=== PATIENT | female | born 1965 | race Native Hawaiian/Other Pacific Islander ===

== ENCOUNTER 2019-06-27 13:38 | Emergency (ER) | payer OTHER ==
[~2019-06-27] VITALS: Ht 160 cm; Wt 52.2 kg
[2019-06-27 17:40] VITALS: BP 110/53; TEMP 98.5
== END 2019-06-27 17:45 | disposition home or self-care (01) ==
LOC: ED 13:38
DX: M54.5 Low back pain (principal); G89.29 Other chronic pain; M25.551 Pain in right hip; X50.1XXA Overexertion from prolonged static or awkward postures, initial encounter; Y92.009 Unspecified place in unspecified non-institutional (private) residence as the place of occurrence of the external cause
CPT/HCPCS: 96372; 99283; J1885; J2930

== ENCOUNTER 2019-07-23 11:29 | Emergency (ER) | payer OTHER ==
[~2019-07-23] VITALS: Ht 160 cm; Wt 72.6 kg
[2019-07-23 11:46] VITALS: BP 128/70; TEMP 98.1
== END 2019-07-23 13:30 | disposition home or self-care (01) ==
LOC: ED 11:29
DX: S90.562A Insect bite (nonvenomous), left ankle, initial encounter (principal); W57.XXXA Bitten or stung by nonvenomous insect and other nonvenomous arthropods, initial encounter
CPT/HCPCS: 99281

== ENCOUNTER 2019-08-06 20:03 | Emergency (ER) | payer OTHER ==
[~2019-08-06] VITALS: Ht 160 cm; Wt 72.6 kg
[2019-08-06 21:23] LABS: PLATELET COUNT 215 K/uL (152-353)
[2019-08-06 21:31] LABS: POTASSIUM 3.8 mmol/L (3.6-5.2); SODIUM 138 mmol/L (136-145)
[2019-08-07 00:02] VITALS: BP 115/61; TEMP 98.2
== END 2019-08-07 00:02 | disposition home or self-care (01) ==
LOC: ED 20:03
PROVIDERS: Family Medicine
DX: R07.89 Other chest pain (principal); M50.30 Other cervical disc degeneration, unspecified cervical region; M79.2 Neuralgia and neuritis, unspecified
CPT/HCPCS: 36415; 80053; 81000; 82550; 84484; 85027; 93005; 96374; 99283; 99284; J1885

== ENCOUNTER 2019-10-31 19:45 | Emergency (ER) | payer OTHER ==
[~2019-10-31] VITALS: Ht 160 cm; Wt 71.2 kg
[2019-10-31 21:00] VITALS: BP 105/53; TEMP 98.1
== END 2019-10-31 21:00 | disposition home or self-care (01) ==
LOC: ED 19:45
DX: J11.1 Influenza due to unidentified influenza virus with other respiratory manifestations (principal); R50.9 Fever, unspecified; J32.9 Chronic sinusitis, unspecified; F17.210 Nicotine dependence, cigarettes, uncomplicated
CPT/HCPCS: 87502; 87651; 96372; 99283; J0696; J1885

== ENCOUNTER 2019-11-08 12:12 | Emergency (ER) | payer OTHER ==
[~2019-11-08] VITALS: Ht 160 cm; Wt 51.7 kg
[2019-11-08 12:20] VITALS: BP 151/89; TEMP 97.9
== END 2019-11-08 14:31 | disposition home or self-care (01) ==
LOC: ED 12:12
DX: B34.9 Viral infection, unspecified (principal); J18.9 Pneumonia, unspecified organism; J02.9 Acute pharyngitis, unspecified; F17.210 Nicotine dependence, cigarettes, uncomplicated
CPT/HCPCS: 87502; 87651; 96372; 99283; J1885

== ENCOUNTER 2020-06-08 22:18 | Emergency (ER) | payer OTHER ==
[~2020-06-08] VITALS: Ht 160 cm; Wt 49.9 kg
[2020-06-08 23:30] VITALS: BP 118/62; TEMP 99
== END 2020-06-08 23:30 | disposition home or self-care (01) ==
LOC: ED 22:18
DX: M25.511 Pain in right shoulder (principal); M75.51 Bursitis of right shoulder
CPT/HCPCS: 96372; 99283; J1885; J2930

== ENCOUNTER 2020-10-08 13:44 | Emergency (ER) | payer OTHER ==
[~2020-10-08] VITALS: Ht 160 cm; Wt 52.2 kg
[2020-10-08 15:00] VITALS: BP 116/63; TEMP 98.7
== END 2020-10-08 15:00 | disposition home or self-care (01) ==
LOC: ED 13:44
DX: M16.0 Bilateral primary osteoarthritis of hip (principal); M19.042 Primary osteoarthritis, left hand; M19.041 Primary osteoarthritis, right hand; M19.09 Primary osteoarthritis, other specified site; M79.641 Pain in right hand
CPT/HCPCS: 96372; 99283; J1885; J2930

== ENCOUNTER 2020-12-10 20:48 | Emergency (ER) | payer OTHER ==
[~2020-12-10] VITALS: Ht 160 cm; Wt 51.7 kg
[2020-12-10 23:15] VITALS: BP 124/74; TEMP 98.5
== END 2020-12-10 23:15 | disposition home or self-care (01) ==
LOC: ED 20:48
DX: M19.032 Primary osteoarthritis, left wrist (principal)
CPT/HCPCS: 96372; 99283; J2930

== ENCOUNTER 2021-01-06 08:39 | Emergency (ER) | payer OTHER ==
[~2021-01-06] VITALS: Ht 160 cm; Wt 52.2 kg
[2021-01-06 08:55] VITALS: BP 127/74; TEMP 97.3
== END 2021-01-06 09:20 | disposition home or self-care (01) ==
LOC: ED 08:39
DX: M79.642 Pain in left hand (principal); M19.042 Primary osteoarthritis, left hand; M10.9 Gout, unspecified
CPT/HCPCS: 96372; 99283; J1885; J2930

== ENCOUNTER 2021-01-08 23:27 | Emergency (ER) | payer OTHER ==
[~2021-01-08] VITALS: Ht 160 cm; Wt 52.2 kg
[2021-01-09 00:50] LABS: POTASSIUM 3.9 mmol/L (3.6-5.2)
[2021-01-09 02:13] LABS: PLATELET COUNT 254 K/uL (152-353)
[2021-01-09 03:31] VITALS: BP 131/66; TEMP 98.3
== END 2021-01-09 03:30 | disposition home or self-care (01) ==
LOC: ED 23:27
PROVIDERS: Hospitalist
DX: L03.114 Cellulitis of left upper limb (principal); M19.032 Primary osteoarthritis, left wrist; M10.9 Gout, unspecified
CPT/HCPCS: 36415; 80048; 83605; 84550; 85027; 87040; 96365; 96375; 99284; J1100; J1170; J1885; J3370

== ENCOUNTER 2021-06-23 23:17 | Emergency (ER) | payer OTHER ==
[~2021-06-23] VITALS: Ht 160 cm; Wt 52.2 kg
[2021-06-24 04:11] LABS: PLATELET COUNT 164 K/uL (152-353)
[2021-06-24 04:24] LABS: POTASSIUM 3.9 mmol/L (3.6-5.2)
[2021-06-24 05:30] VITALS: BP 121/74; TEMP 98.3
== END 2021-06-24 05:30 | disposition home or self-care (01) ==
LOC: ED 23:17
PROVIDERS: Family Medicine
DX: R22.1 Localized swelling, mass and lump, neck (principal); J02.9 Acute pharyngitis, unspecified; F17.210 Nicotine dependence, cigarettes, uncomplicated
CPT/HCPCS: 80053; 84443; 85027; 86140; 87651; 99283

== ENCOUNTER 2021-10-02 15:22 | Outpatient (CLI) | payer OTHER | END 2021-10-02 19:06 | disposition home or self-care (01) | LOC: RAD 15:22 | PROVIDERS: ATTEND Internal Medicine | DX: M19.031 Primary osteoarthritis, right wrist (principal); M19.041 Primary osteoarthritis, right hand ==

== ENCOUNTER 2022-06-10 21:21 | Emergency (ER) | payer OTHER ==
[~2022-06-10] VITALS: Ht 160 cm; Wt 51.7 kg
[2022-06-10 22:24] VITALS: BP 179/97; TEMP 99.1
== END 2022-06-10 22:24 | disposition left against medical advice (07) ==
LOC: ED 21:21
DX: G89.4 Chronic pain syndrome (principal); F11.20 Opioid dependence, uncomplicated
CPT/HCPCS: 93005; 99283; J2001

== ENCOUNTER 2022-06-17 04:21 | Inpatient (IN) | payer OTHER ==
[~2022-06-17] VITALS: Ht 160 cm; Wt 50.4 kg
[2022-06-17] VITALS (7 sets, daily range): BP systolic 101–185; BP diastolic 60–101; TEMP 97.6–99; Ht 160 cm; Wt 50.4 kg
[2022-06-17 05:31] LABS: POTASSIUM 3.7 mmol/L (3.6-5.2)
[2022-06-17 05:35] LABS: PLATELET COUNT 369 K/uL (152-353)
[2022-06-17] MEDS ORDERED: Z-PAK PO (11:26)
[2022-06-17] MEDS ORDERED: MEDROL DOSEPAK4 MG PO (11:27)
[2022-06-17] MEDS ORDERED: PROAIR HFA108 MCG/AC INH (11:28)
[2022-06-17] MEDS ORDERED: DICL1GEL2 TOP (11:44)
[2022-06-17] MEDS ORDERED: CETI10TA PO (11:45)
[2022-06-18] VITALS: BP 120/56; TEMP 97.8
[2022-06-18 04:00] VITALS: BP 112/64; TEMP 97.8
[2022-06-18 08:09] VITALS: BP 122/70; TEMP 98.5
[2022-06-18 09:25] LABS: PLATELET COUNT 162 K/uL (152-353)
[2022-06-18 09:31] LABS: POTASSIUM 4.5 mmol/L (3.6-5.2)
[2022-06-18 12:00] VITALS: BP 118/67; TEMP 98.6
[2022-06-18 16:00] VITALS: BP 114/57; TEMP 99.1
[2022-06-18 20:00] VITALS: BP 128/45; TEMP 98.3
[2022-06-19] VITALS: BP 119/59; TEMP 98.4
[2022-06-19 02:18] LABS: PLATELET COUNT 365 K/uL (152-353)
[2022-06-19 02:21] LABS: POTASSIUM 3.9 mmol/L (3.6-5.2)
[2022-06-19 04:00] VITALS: BP 140/59; TEMP 98.4
[2022-06-19 08:00] VITALS: BP 144/79; TEMP 98.4
[2022-06-19 12:00] VITALS: BP 156/76; TEMP 98.3
[2022-06-19 16:00] VITALS: BP 143/787; TEMP 98.8
[2022-06-19 20:00] VITALS: BP 132/66; TEMP 99.9
[2022-06-20] VITALS: BP 123/55; TEMP 98.5
[2022-06-20 03:45] VITALS: BP 132/86; TEMP 98.3
[2022-06-20 08:00] VITALS: BP 130/67; TEMP 98.4
[2022-06-20 12:00] VITALS: BP 134/69; TEMP 98.2
== END 2022-06-20 13:03 | disposition short-term general hospital (02) | DRG 603 ==
LOC: ED 04:21 → MED/SURG 08:02
PROVIDERS: ADMIT Family Medicine; ATTEND Internal Medicine
DX: L02.414 Cutaneous abscess of left upper limb (principal); G89.29 Other chronic pain; F15.20 Other stimulant dependence, uncomplicated; R78.81 Bacteremia; B95.61 Methicillin susceptible Staphylococcus aureus infection as the cause of diseases classified elsewhere
CPT/HCPCS: 36415; 36416; 80053; 80202; 80307; 81002; 83735; 84100; 85027; 85652; 86140; 87040; 87070; 87077; 87185; 87186; 87205; 87635; 96360; 96361; 96365; 96367; 96374; 96376; 99284; J0132; J1170; J1885; J2543; J3370; U0003

== ENCOUNTER 2022-07-30 13:11 | Emergency (ER) | payer OTHER ==
[~2022-07-30] VITALS: Ht 160 cm; Wt 51.7 kg
[~2022-07-30 13:11] MED LIST: CETI10TA PO; DICL1GEL2 TOP; MEDROL DOSEPAK4 MG PO; PROAIR HFA108 MCG/AC INH; Z-PAK PO
[2022-07-30 13:20] VITALS: TEMP 96.7
[2022-07-30 14:36] VITALS: BP 98/66
== END 2022-07-30 14:39 | disposition home or self-care (01) ==
LOC: ED 13:11
DX: G89.4 Chronic pain syndrome (principal); R82.5 Elevated urine levels of drugs, medicaments and biological substances
CPT/HCPCS: 80307; 99282

== ENCOUNTER 2022-08-17 19:54 | Emergency (ER) | payer OTHER ==
[~2022-08-17] VITALS: Ht 160 cm; Wt 51.7 kg
[2022-08-17 20:00] VITALS: TEMP 97.6
[2022-08-17 23:15] VITALS: BP 113/72
== END 2022-08-17 23:15 | disposition home or self-care (01) ==
LOC: ED 19:54
DX: M54.2 Cervicalgia (principal); M54.89 Other dorsalgia; G89.29 Other chronic pain; M43.5X2 Other recurrent vertebral dislocation, cervical region
CPT/HCPCS: 80307; 96372; 99283; J1885; J2360

== ENCOUNTER 2022-09-13 22:03 | Inpatient (IN) | payer OTHER ==
[~2022-09-13] VITALS: Ht 160 cm; Wt 51.3 kg
[2022-09-13 22:03] VITALS: BP 140/68; TEMP 98.8
[2022-09-13 23:00] VITALS: BP 148/64
[2022-09-13 23:40] LABS: POTASSIUM 3.4 mmol/L (3.6-5.2)
[2022-09-14] VITALS (8 sets, daily range): BP systolic 107–154; BP diastolic 48–79; TEMP 98.1–98.5; Ht 160 cm; Wt 51.3 kg
[2022-09-14 00:52] LABS: PLATELET COUNT 591 K/uL (152-353)
[2022-09-14 10:12] LABS: PLATELET COUNT 551 K/uL (152-353)
[2022-09-14 10:20] LABS: POTASSIUM 3.6 mmol/L (3.6-5.2)
[2022-09-14] MEDS ORDERED: MOBIC15 MG PO (12:21)
[2022-09-14] MEDS ORDERED: GABA300C2 PO (12:21)
[2022-09-14] MEDS ORDERED: DILAUDID8 MG PO (12:22)
[2022-09-15] VITALS: BP 124/58; TEMP 98.5
[2022-09-15 04:00] VITALS: BP 135/60; TEMP 98.1
[2022-09-15 08:00] VITALS: BP 126/60; TEMP 98.6
[2022-09-15 12:00] VITALS: BP 109/28; TEMP 98.4
[2022-09-15 15:36] LABS: PLATELET COUNT 456 K/uL (152-353)
[2022-09-15 15:46] LABS: POTASSIUM 3.8 mmol/L (3.6-5.2)
[2022-09-15 16:00] VITALS: BP 112/57; TEMP 97.6
[2022-09-15 20:00] VITALS: BP 91/43; TEMP 98.2
[2022-09-16 00:02] VITALS: BP 106/49; TEMP 98.2
[2022-09-16 04:00] VITALS: BP 106/47; TEMP 98.2
[2022-09-16 08:00] VITALS: BP 116/37; TEMP 98.4
[2022-09-16] MEDS ORDERED: CHOL4POW11 PO (09:03)
[2022-09-16] MEDS ORDERED: VANCOCIN HCL250 MG PO (09:15)
[2022-09-16 12:00] VITALS: BP 120/44; TEMP 98.7
== END 2022-09-16 14:25 | disposition home or self-care (01) | DRG 373 ==
LOC: ED 22:03 → MED/SURG 09-14 02:14
PROVIDERS: ADMIT Family Medicine; ATTEND Internal Medicine
DX: A04.72 Enterocolitis due to Clostridium difficile, not specified as recurrent (principal); F19.10 Other psychoactive substance abuse, uncomplicated; E87.6 Hypokalemia; I10 Essential (primary) hypertension; E78.49 Other hyperlipidemia; K21.9 Gastro-esophageal reflux disease without esophagitis; E03.8 Other specified hypothyroidism; F41.8 Other specified anxiety disorders; D72.828 Other elevated white blood cell count
CPT/HCPCS: 36415; 80048; 80053; 80307; 81002; 83605; 83630; 83735; 84100; 85007; 85027; 87015; 87040; 87045; 87324; 87328; 87329; 87449; 87635; 87899; 96360; 96361; 99284; J1885; U0003

== ENCOUNTER 2022-09-27 14:49 | Emergency (ER) | payer OTHER ==
[~2022-09-27] VITALS: Ht 160 cm; Wt 51.3 kg
[~2022-09-27 14:49] MED LIST changes: +CHOL4POW11 PO; +DILAUDID8 MG PO; +GABA300C2 PO; +MOBIC15 MG PO; +VANCOCIN HCL250 MG PO
[2022-09-27 14:50] VITALS: BP 114/51
== END 2022-09-27 15:36 | disposition home or self-care (01) ==
LOC: ED 14:49
DX: M10.9 Gout, unspecified (principal); M79.642 Pain in left hand; M79.641 Pain in right hand
CPT/HCPCS: 99281

== ENCOUNTER 2023-06-09 15:26 | Emergency (ER) | payer OTHER ==
[~2023-06-09] VITALS: Ht 160 cm; Wt 52.6 kg
[2023-06-09 15:26] VITALS: TEMP 98.7
[2023-06-09 15:55] VITALS: BP 125/58
== END 2023-06-09 15:55 | disposition home or self-care (01) ==
LOC: ED 15:26
DX: S30.0XXA Contusion of lower back and pelvis, initial encounter (principal); S90.512A Abrasion, left ankle, initial encounter; S50.812A Abrasion of left forearm, initial encounter; W19.XXXA Unspecified fall, initial encounter; Y93.9 Activity, unspecified; Y92.9 Unspecified place or not applicable; Y99.9 Unspecified external cause status
CPT/HCPCS: 99282

== ENCOUNTER 2023-08-14 04:54 | Observation (INO) | payer OTHER ==
[~2023-08-14] VITALS: Ht 160 cm; Wt 59.5 kg
[2023-08-14 04:54] VITALS: BP 111/63; TEMP 97.2
[2023-08-14 11:41] LABS: PLATELET COUNT 390 K/uL (152-353)
[2023-08-14 12:16] LABS: POTASSIUM 3.8 mmol/L (3.6-5.2)
[2023-08-14 13:47] VITALS: BP 100/50; TEMP 98; Ht 160 cm; Wt 59.5 kg
[2023-08-14 16:00] VITALS: BP 99/50; TEMP 98.6
[2023-08-14] MEDS ORDERED: MULTIVITAMIN AD1 TA1 PO (19:43)
[2023-08-14 20:00] VITALS: BP 106/54; TEMP 98.8
[2023-08-14 23:35] VITALS: BP 105/57; TEMP 98.3
[2023-08-15 03:47] VITALS: BP 97/56; TEMP 98.4
[2023-08-15 08:00] VITALS: BP 108/54; TEMP 98.2
[2023-08-15 08:54] LABS: PLATELET COUNT 344 K/uL (152-353)
[2023-08-15 09:13] LABS: POTASSIUM 4.1 mmol/L (3.6-5.2)
[2023-08-15 12:00] VITALS: BP 110/58; TEMP 98.1
[2023-08-15 16:00] VITALS: BP 101/52; TEMP 98.3
[2023-08-15 20:00] VITALS: BP 103/48; TEMP 97.5
[2023-08-16] VITALS: BP 103/50; TEMP 97.7
[2023-08-16 03:26] LABS: PLATELET COUNT 388 K/uL (152-353)
[2023-08-16 04:00] VITALS: BP 127/47; TEMP 98
[2023-08-16 08:00] VITALS: BP 128/84; TEMP 98
[2023-08-16 12:00] VITALS: BP 129/68; TEMP 98.5
== END 2023-08-16 14:49 | disposition home or self-care (01) ==
LOC: ED 04:54 → MED/SURG 06:12
PROVIDERS: ADMIT Family Medicine; ATTEND Family Medicine
DX: L02.413 Cutaneous abscess of right upper limb (principal); Z91.199 Patient's noncompliance with other medical treatment and regimen due to unspecified reason; F15.10 Other stimulant abuse, uncomplicated; K21.9 Gastro-esophageal reflux disease without esophagitis; I10 Essential (primary) hypertension; G89.29 Other chronic pain; M19.90 Unspecified osteoarthritis, unspecified site; J44.9 Chronic obstructive pulmonary disease, unspecified; F17.210 Nicotine dependence, cigarettes, uncomplicated; E87.1 Hypo-osmolality and hyponatremia; R45.1 Restlessness and agitation; E87.8 Other disorders of electrolyte and fluid balance, not elsewhere classified; B95.4 Other streptococcus as the cause of diseases classified elsewhere
CPT/HCPCS: 36415; 80053; 83605; 83735; 84100; 85027; 86140; 87040; 87070; 87077; 87185; 87186; 87205; 96360; 96361; 96365; 96367; 96375; 96376; 99221; 99284; G0378; J2930; J3370; J3475